=== PATIENT | female | born 1995 | race Caucasian/White ===

== ENCOUNTER 2024-11-24 03:41 | Emergency (ER) | payer OTHER, SELFPAY ==
[2024-11-24 03:43] VITALS: BP 136/94
--- NOTE | 2024-11-24 03:51 | ED.SKININJ ---
HPI-Injury
<Vielka Thomas PA-C - Last Filed: 11/24/24 06:49>
General
Chief Complaint: Bite
Source: patient
Exam Limitations: none
Time Seen by Provider: 11/24/24 03:50
Nursing documentation reviewed up to this point in time: agreed with
History of Present Illness-Injury
Is this injury a work related problem?: No
Is pt an associate of [facility]?: No
Initial Injury comments:
This is a 29-year-old female with no past medical history presents emergency department today for dog bite. She reports that she was sleeping in her bed next to her dog when she rolled over her dog on accident and the dog was startled and bit her.
She reports that her dog is up-to-date on its rabies vaccinations and she has paper proof of this. She does not recall when she last had her tetanus vaccine. She states has not been within the last 5 years. She denies any other injuries.
Past History
<Vielka Thomas PA-C - Last Filed: 11/24/24 06:49>
Past History
ED Past Medical History: None
ED Past Surgical History: None
Social History
Living: with family
Review of Systems
<Vielka Thomas PA-C - Last Filed: 11/24/24 06:49>
Review of Systems
All Other Systems: ROS reviewed and negative except as documented in HPI and ROS
Phy Exam
<MADHAVI Prabhakar Last Filed: 11/24/24 06:49>
Physical Exam
Physical Exam:
General: Patient is well appearing and in no acute distress; non-toxic
Skin: Few scaling small puncture wounds noted to the right mandibular area
Head: Normocephalic, atraumatic
Eyes: Sclera non-icteric. EOMs intact.
Mouth: No intraoral involvement. No evidence of through and through laceration
Cardiac: Regular rate
Peripheral Vascular: No lower extremity swelling or edema
Pulm: Normal respiratory effort
Neuro: CN II-XII intact, no focal neurologic deficits.
Psychiatric: Appropriate mood and affect.
Course
<Vielka Thomas PA-C - Last Filed: 11/24/24 06:49>
Orders/Labs/Results
Orders:
Orders
11/24/24 04:01
Amoxicillin 875 mg/Clav 125 mg [Augmentin 875 mg/125 mg] 1 tablet PO NOW STA
Ibuprofen [Motrin] 600 mg PO NOW STA
Tetanus/Diphth/Acelpertussis [Adacel] 0.5 ml IM .ONCE ONE
Vital Signs
Initial and Last Documented VS:
Initial Vital Signs
Temp Pulse Resp BP Pulse Ox
98.5 F 86 18 136/94 98
11/24/24 03:43 11/24/24 03:43 11/24/24 03:43 11/24/24 03:43 11/24/24 03:43
Last Documented Vital Signs
Temp Pulse Resp BP Pulse Ox
98.5 F 86 18 136/94 98
11/24/24 03:43 11/24/24 03:43 11/24/24 03:43 11/24/24 03:43 11/24/24 03:43
<Aden Cid DO - Last Filed: 11/24/24 04:05>
Orders/Labs/Results
Orders:
Orders
11/24/24 04:01
Amoxicillin 875 mg/Clav 125 mg [Augmentin 875 mg/125 mg] 1 tablet PO NOW STA
Ibuprofen [Motrin] 600 mg PO NOW STA
Tetanus/Diphth/Acelpertussis [Adacel] 0.5 ml IM .ONCE ONE
Vital Signs
Initial and Last Documented VS:
Initial Vital Signs
Temp Pulse Resp BP Pulse Ox
98.5 F 86 18 136/94 98
11/24/24 03:43 11/24/24 03:43 11/24/24 03:43 11/24/24 03:43 11/24/24 03:43
Last Documented Vital Signs
Temp Pulse Resp BP Pulse Ox
98.5 F 86 18 136/94 98
11/24/24 03:43 11/24/24 03:43 11/24/24 03:43 11/24/24 03:43 11/24/24 03:43
Procedures
<Vielka Thomas PA-C - Last Filed: 11/24/24 06:49>
Laceration Closure
right chin:
Status of Wound: clean
Size of Wound in cm: 1
Description of Wound Edges: ragged
Preparation: cleaned with saline
Anesthesia: 1% Lidocaine with epi
Revision/Debridement: routine- no revision
Type of Closure: single layer closure
Skin Closure Material: 4-0 prolene
Number of sutures: 2
<MADHAVI Prabhakar Last Filed: 11/24/24 06:49>
MDM/Problems Addressed
Differential Diagnosis Includes:
dog bite
MDM/Problems Addressed:
29-year-old female presents emergency department today with concerns of a dog bite. The dog is up-to-date on vaccinations. Patient's tetanus was updated. On physical exam, patient is well-appearing in no acute distress, she has had 2 puncture
wounds which were thoroughly irrigated with saline. Advised patient that we usually do not typically close these wounds as they are at high risk of infection with the dog bite. Patient is exceptionally concerned about cosmetic appearance. Did
discuss risks with patient however will offer suture placement and will start on antibiotic. Return precautions discussed with patient. Patient stable for discharge.
Chronic conditions affecting care:
N/A
<Vielka Thomas PA-C - Last Filed: 11/24/24 06:49>
*Pulse Oximetry
Patient hypoxic: no
*Critical Care Note
Total Time (30-74mins, 75-104mins- exclusive of procedures): Not Applicable
Data Reviewed
Review of Other/Old Records Reveals: Records (Previous ER physician from 09/01/2021 patient seen for facial injury following headbutting by her dog)
Source: patient and records
<Vielka Thomas PA-C - Last Filed: 11/24/24 06:49>
Patient Management
Escalation/DeEscalation of care consider admission/obs:
Admit not indicated, patient stable for discharge
ED Attending Note
<Vielka Thomas PA-C - Last Filed: 11/24/24 06:49>
-
Portions of this chart may have been created with voice recognition software.� Occasional wrong word or��sound alike� substitutions may have occurred due to the inherent limitations of voice recognition software.
<Aden Cid DO - Last Filed: 11/24/24 04:05>
ED Attending Note
Patient seen and examined by attending physician: Yes
I performed the substantive portion of visit, reviewed & personally made and approve the management plan that is documented in note by myself or JAYESH.: Yes
ED Attending Note:
seen with MAN, puncture wound from a dog bite to the face superficial not through and through Planwound care irrigation 1 suture antibiotic
Discharge Plan
Departure
Patient Disposition: Home (Routine Discharge)
Date of Disposition: 11/24/24
Time of Disposition: 04:48
Patient with high blood pressure during this ER visit?: Yes
Condition: Good
Discharge Problem:
Dog bite
Instructions: Animal Bites (DC), Wound Care (DC)
Prescriptions:
New
amoxicillin-pot clavulanate 875-125 mg tablet
1 tab PO BID Qty: 14 0RF
Activity Restrictions/Additional Instructions:
Augmentin has been sent to your pharmacy. You received your first dose here today.
Your tetanus has been updated today.
Your stitches need to come out in 5 to 7 days, you can return your primary care provider, urgent care, or emergency department to have them removed.
PLEASE RETURN EMERGENCY DEPARTMENT SHOULD YOU DEVELOP PURULENT DRAINAGE FROM THE WOUND, INCREASING PAIN, LOSS OF SENSATION, FEVERS OR CHILLS, OR ANY OTHER SIGNS OR SYMPTOMS WORRISOME TO YOU.
Interventions
Interventions:
*Risk Screen - Suicide Last Done: 11/24/24 03:57
*General Assessment Last Done: 11/24/24 05:07
*Neglect/Abuse Screening Last Done: 11/24/24 03:57
*ED- Fall Risk Assessment Last Done: 11/24/24 05:07
*ED COVID-19 Vaccine History Last Done: 11/24/24 05:07
*Nursing Disposition Last Done: 11/24/24 05:07
ED-Skin Assessment Last Done: 11/24/24 03:57
Discharge Date and Time
Discharge Date/Time: 11/24/24 05:08
Print Language: UPPER SORBIAN
[2024-11-24 04:00] VITALS: BMI 20.4
[2024-11-24] MEDS: AUGMENTIN 875 MG/125 MG 1 TABLET PO (04:22)
[2024-11-24] MEDS: MOTRIN 600 MG PO (04:22)
[2024-11-24] MEDS: ADACEL 0.5 ML IM (04:23)
== END 2024-11-24 05:08 | disposition home or self-care (01) ==
LOC: EMR 03:41
PROVIDERS: EMERGENCY PHYSICIAN Emergency Medicine
DX: S01.83XA Puncture wound without foreign body of other part of head, initial encounter (principal); W54.0XXA Bitten by dog, initial encounter; Z23 Encounter for immunization
CPT/HCPCS: 99283; 12011; 90471; 90715

== ENCOUNTER 2024-11-30 13:36 | Emergency (ER) | payer OTHER, SELFPAY ==
[2024-11-30 13:38] VITALS: BP 125/80
--- NOTE | 2024-11-30 14:04 | ED.GENMED ---
History of Present Illness
General
Chief Complaint: Wound Check/Suture Removal
Source: patient and records
Exam Limitations: none
Time Seen by Provider: 11/30/24 13:57
History of Present Illness
History of Present Illness:
29yoF presenting to the ED for suture removal. She was seen in ED on 11/24/24 for a dog bite to her chin. Two sutures was replaced at that time. She states one suture already fell off on its own. She denies any other concerns.
Past History
Past History
ED Past Medical History: None
ED Past Surgical History: None
Social History
Living: with family
Phy Exam
General Physical Exam
General Presentation: well appearing and no apparent distress
General age: appears stated age
General Skin: warm and dry
General Habitus: normal
General Mental: alert
ENT Exam
ENT Exam: normocephalic and other (One intact suture noted to the R chin. Wound well healed. No signs of infection. )
Neurological Exam
Neurological Exam: alert
Kenia Coma Scale
Eye Opening: Spontaneous
Verbal Response: Oriented
Motor Response: Obeys Commands
GCS Total Score: 15
Skin Exam
Skin Exam: normal color and warm/dry
Psychiatric Exam
Psychiatric Exam: normal mood/affect
Course
Vital Signs
Initial and Last Documented VS:
Initial Vital Signs
Temp Pulse Resp BP Pulse Ox
98.2 F 93 18 125/80 97
11/30/24 13:38 11/30/24 13:38 11/30/24 13:38 11/30/24 13:38 11/30/24 13:38
Last Documented Vital Signs
Temp Pulse Resp BP Pulse Ox
98.2 F 93 18 125/80 97
11/30/24 13:38 11/30/24 13:38 11/30/24 13:38 11/30/24 13:38 11/30/24 13:38
MDM/Problems Addressed
Differential Diagnosis Includes:
29yoF here for suture removal. No other concerns. VSS. Wound is well healed on exam without evidence of infection. One suture removed with suture removal kit. Patient tolerated well and was discharged in stable condition.
*Critical Care Note
Total Time (30-74mins, 75-104mins- exclusive of procedures): Not Applicable
ED Attending Note
-
Portions of this chart may have been created with voice recognition software.� Occasional wrong word or��sound alike� substitutions may have occurred due to the inherent limitations of voice recognition software.
Discharge Plan
Departure
Patient Disposition: Home (Routine Discharge)
Date of Disposition: 11/30/24
Time of Disposition: 14:03
Patient with high blood pressure during this ER visit?: No
Discharge Problem:
Encounter for removal of sutures
Instructions: Stitches Removal
Prescriptions:
No Action
amoxicillin-pot clavulanate 875-125 mg tablet
1 tab PO BID Qty: 14 0RF
Interventions
Interventions:
*Risk Screen - Suicide Last Done: 11/30/24 13:38
*General Assessment Last Done: 11/30/24 13:38
Discharge Date and Time
Print Language: UPPER SORBIAN
== END 2024-11-30 14:20 | disposition home or self-care (01) ==
LOC: EMR 13:36
PROVIDERS: EMERGENCY PHYSICIAN Student in an Organized Health Care Education/Training Program
DX: S01.85XD Open bite of other part of head, subsequent encounter (principal); W54.0XXD Bitten by dog, subsequent encounter
CPT/HCPCS: 99281